=== PATIENT | female | born 1955 | race Hispanic/Latino ===

== ENCOUNTER 2016-09-27 10:43 | Outpatient (CLI) | payer MEDICARE ==
--- NOTE | 2016-09-27 11:45 | Cat Scan Report ---
CT of the chest without contrast. History: Cough, tobacco abuse. Findings: The absence of intravenous contrast decreases sensitivity of this study. Small mediastinal lymph nodes are noted especially in the pretracheal and precarinal region. No enlarged lymph nodes are seen. A densely calcified granuloma is seen in the right lower lobe. Several small emphysematous blebs are seen in the lungs bilaterally. In the anterior segment of the right upper lobe, there is an area of ill-defined density with associated linear adjacent densities, probably representing parenchymal scarring from an old infection. No mass lesions are identified. There is no pleural fluid. A 5.8 cm in diameter lipoma is seen adjacent to the right shoulder. Images which include a portion of the upper abdomen demonstrate a 2.2 cm soft tissue nodule in the left adrenal gland. Multiple granulomas calcific is seen within the spleen. Impression: 1. Mild emphysematous changes. 2. Right upper lobe soft tissue density with linear components most likely represents chronic parenchymal scarring related to an old inflammatory process. 3. Lipoma adjacent to the right shoulder. 4. Soft tissue nodule in the left adrenal gland probably represents an adenoma.
== END 2016-09-27 10:44 | disposition home or self-care (01) ==
LOC: CT 10:43
PROVIDERS: ATTEND Family Medicine
DX: Z12.2 Encounter for screening for malignant neoplasm of respiratory organs (principal); J84.10 Pulmonary fibrosis, unspecified; D17.79 Benign lipomatous neoplasm of other sites; E27.8 Other specified disorders of adrenal gland; D73.89 Other diseases of spleen; Z72.0 Tobacco use
CPT/HCPCS: 71250